=== PATIENT | male | born 1990 | race Two or more races ===

== ENCOUNTER 2020-09-24 23:33 | Emergency (ER) | payer SELFPAY ==
[~2020-09-24] VITALS: Ht 167.6 cm; Wt 81.0 kg
[2020-09-25] MEDS ORDERED: ONDANSETRON HCL 4MG/2ML INJ IV STA (00:19)
[2020-09-25] MEDS ORDERED: SODIUM CHLORIDE 0.9% 1,000 ML IV ONE (00:30)
[2020-09-25 03:24] VITALS: BP 122/87
== END 2020-09-25 03:17 | disposition home or self-care (01) ==
LOC: ER 23:33
DX: F10.129 Alcohol abuse with intoxication, unspecified (principal); Y90.9 Presence of alcohol in blood, level not specified
CPT/HCPCS: 99283; J7030